=== PATIENT | male | born 1970 | race Caucasian/White ===

== ENCOUNTER 2024-11-29 16:10 | Outpatient (AMB) | payer OTHER, SELFPAY ==
--- OUTSIDE RECORDS SUMMARY | 2024-11-29 16:13 | XMS_ITS | Clinical Summary ---
Author Organization [facility] Address [address] [place] [address] Care Team Providers Care Office Services Specialist Name Role Phone Unavailable Primary Care Provider Unavailabl e Allergies Active Allergy Reactions Criticality Noted Date Comments Hydromorphone Other (See Comments) 11/01/2017 Pressure and tachycardia Morphine Other (See Comments) 11/01/2017 Intense pressure' Medications Medication Sig Dispensed Refills Start Date End Date Status ibuprofen (ADVIL,MOTRIN) 200 MG tablet Take 3 tablets (600 mg total) by mouth every 6 (six) hours as needed for pain. 30 tablet 0 04/04/2016 Active clonazePAM (KLONOPIN) 1 MG tablet Take 1 mg by mouth 2 (two) times a day. 3 08/24/2017 Active hydroCHLOROthiazide (MICROZIDE) 12.5 MG capsule Take 1 capsule (12.5 mg total) by mouth daily. 30 capsule 0 11/02/2017 Active acetaminophen-codein e (TYLENOL #3) 300-30 MG per tablet Take 1 tablet by mouth every 4 (four) hours as needed for pain. 12 tablet 0 07/08/2022 Active Active Problems No known active problems Social History Tobacco Use Types Packs/Day Years Used Date Smoking Tobacco: Never Smokeless Tobacco: Never Alcohol Use Standard Drinks/Week Comments Yes 0 (1 standard drink = 0.6 oz pur e alcohol) rarely Sex and Gender Information Value Date Recorded Sex Assigned at Male 07/07/2022 10:38 PM EDT Gender Identity Not on file Sexual Orientation Not on file Job Start Date Occupation Industry Not on file Not on file Not on file Last Filed Vital Signs Vital Sign Reading Time Taken Comments Blood Pressure 156/92 07/08/2022 1:01 AM EDT Pulse 108 07/08/2022 1:01 AM EDT Temperature 36.7 C (98 F) 07/07/2022 11:49 PM EDT Respiratory Rate 20 07/07/2022 11:49 PM EDT Oxygen Saturation 98% 07/07/2022 11:49 PM EDT Inhaled Oxygen Concentration - - Weight 92.1 kg (203 lb) 11/01/2017 11:00 PM EDT Height 177.8 cm (5' 10 ) 11/01/2017 11:00 PM EDT Body Mass Index 29.13 11/01/2017 11:00 PM EDT Plan of Treatment Health Maintenance Due Date Last Done Comments Hepatitis B Vaccines (1 of 3 - 3-dose series) 1968 Hepatitis C Screening 1968 COVID-19 Vaccine (#1) 05/10/1969 Depression Screening 1980 Preventative Health Evaluation 1986 DTap / Tdap / Td (1 - Tdap) 05/08/2008 05/07/2008 Colon Cancer Screening (Colonoscopy) 2013 Shingrix-Zoster Vaccine (1 of 2) 2018 Influenza Vaccine (#1) 2024 Pneumococcal Vaccine Aged Out No long er eligible based on patient's age to complete this topic RSV Ped < 20 months Aged Out No longe r eligible based on patient's age to complete this topic Insurance Payer Benefit Plan / Group Subscriber ID Effective Dates Phone Address [facility] [id number] 2010-Present [address] [facility] [address] [place] [address] HMO
--- OUTSIDE RECORDS SUMMARY | 2024-11-29 16:13 | XMS_ITS | Clinical Summary ---
Author Organization [facility] Address [address] [place] [address] Care Team Providers Care Cigar Sorter Name Role Phone Physician, No Pcp Primary Care Provider Unavaila ble Surgical History Surgery Date Site/Laterality Comments HERNIA REPAIR PROCEDURE:HERNIA REPAIR Medical History Medical History Date Comments Gout DX:Gout Hypertension DX:Hypertension Social History Tobacco Use Types Packs/Day Years Used Date Smoking Tobacco: Never Smokeless Tobacco: Never Alcohol Use Standard Drinks/Week Comments Yes 0 (1 standard drink = 0.6 oz pur e alcohol) Sex and Gender Information Value Date Recorded Sex Assigned at Not on file Legal Sex Male 2:19 PM EST Gender Identity Not on file Sexual Orientation Not on file Obstetrics History Plan of Treatment Health Maintenance Due Date Last Done Comments Hepatitis B Vaccines (1 of 3 - 19+ 3-dose series) 11/08/1987 DTaP,Tdap,and Td Vaccines (2 - Td or Tdap) 05/07/2018 05/07/2008 Pneumococcal Vaccine: 50+ Years (1 of 1 - PCV) 2018 Zoster Vaccines (1 of 2) 2018 Cholesterol Screening (Lipid Panel) 03/18/2022 Colorectal Cancer Screening: Colonoscopy 03/18/2022 HIV Screening 03/18/2022 Hepatitis C Screening 03/18/2022 Social Influencers of Health Screening 03/18/2022 Hypertension/CHF/CAD Annual BMP Blood Test 07/08/2023 07/07/2022, 11/01/2017, 11/01/2017 COVID-19 Vaccine (1 - 2023-2 5 season) 2023 Depression Screening 04/19/2024 Influenza Vaccine (#1) 2024 HIB Vaccines Aged Out No longer eligi ble based on patient's age to complete this topic HPV Vaccines Aged Out No longer eligi ble based on patient's age to complete this topic Hepatitis A Vaccines Aged Out No long er eligible based on patient's age to complete this topic IPV Vaccines Aged Out No longer eligi ble based on patient's age to complete this topic MMR Vaccines Aged Out No longer eligi ble based on patient's age to complete this topic Meningococcal ACWY Vaccine Aged Out N o longer eligible based on patient's age to complete this topic Meningococcal B Vaccine Aged Out No l onger eligible based on patient's age to complete this topic RSV Immunization Patients Under 20 months Aged Out No longer eligible b ased on patient's age to complete this topic Varicella Vaccines Aged Out No longer eligible based on patient's age to complete this topic Care Teams Cigar Sorter Relationship Specialty Start Date End Date Physician, No Pcp PCP - General 03/23/22
--- NOTE | 2024-11-29 16:18 | A.OFFVIS_ITS ---
Intake Visit Reasons: 6 Months Allergies Pain Medications Allergy (Unknown, Uncoded 11/24/24 08:24) Unknown Medication List - Last Reconciled 11/29/24 by Ai Ramos MD allopurinol 100 mg PO DAILY clonazepam 1 mg PO BID colchicine 0.6 mg PO BID losartan-hydrochlorothiazide 50-12.5 mg 1 tab PO DAILY metoprolol succinate ER 25 mg PO DAILY HPI Comments Details: 2 weeks ago had an SVT event for 30 minutes. Went to Er but he came out of it spontaneously. Also had it in 2021. Overall his dizziness is under control and is stable.. Sleeps ok mostly. Rare brief, dizzy spells over last 6 months. Anxiety is very manageable with clonazepam. Working from home. He had swimmer's ear and was prescribed an ear drop that did not seem to be helping. He was asking for another antibiotic ear drop to be prescribed. No palpitation or SVT with Metoprolol. Occasionally gets stuck for a word for a few seconds. History of pressure in his head and more severe pain in the right occipital areas going into both retro-orbital areas of the head as well as dizziness and presyncope since 2003 with a negative workup including MRI and a tilt table test. He has significant anxiety. ON LICENSE OF [facility] Medical History (Updated 11/29/24 @ 16:20 by Ai Ramos MD) Gout Hypertension Tinnitus Anxiety disorder Headache Dizziness Review of Systems Const Details: leep:? Difficulty getting to sleep?admits.? Difficulty maintaining sleep?denies? .? Urge to move legs?denies.? Teeth grinding?denies.? Shouting or Kicking during sleep?denies.? Abnormal behavior during sleep?denies.? Excessive sleep?denies.? Snoring?denies.? Daytime sleepiness?denies.? ?? General/Constitutional:? Change in appetite?denies.? Chills?denies.? Fatigue?admits.? Fever?denies .? Weight gain?denies.? Weight loss?denies.? ?? Respiratory:? Shortness of breath?denies.? Chest pain?denies.? Cough?denies.? ?? Cardiovascular:? Chest pain at rest?admits.? Chest pain with exertion?denies.? Claudication?denies.? Dizziness?denies.? Fluid accumulation in the legs?denies.? Irregular heartbeat?denies.? Palpitations?admits.? ?? Gastrointestinal:? Abdominal pain?denies.? Constipation?denies.? Diarrhea?denies.? Difficulty swallowing?denies.? Heartburn?denies.? Nausea?denies.? Rectal bleeding?denies.? ?? Genitourinary:? Frequent urination?denies.? Urgency?denies.? Incontinence?denies.? Erectile Dysfunction?denies.? ?? Musculoskeletal:? Neck pain?admits.? Back pain?admits.? Muscle aches?admits.? Painful joints?denies.? Sciatica?denies.? Weakness?denies.? ?? Neurologic:? Difficulty swallowing?denies.? Balance difficulty?denies.? Coordination? normal.? Difficulty speaking?denies.? Dizziness?admits.? Fainting?denies.? Gait abnormality?denies.? Headache?admits.? Loss of strength?denies.? Loss of use of extremity?denies.? Low back pain?denies.? Memory loss?denies.? Seizures?denies.? Tics?denies.? Tingling/Numbness?denies.? Transient loss of vision?denies.? Tremor?denies.? ?? Psychiatric:? Anxiety?admits.? Auditory/visual hallucinations?denies.? Delusions?denies .? Depressed mood?denies.? Stressors?admits.? Substance abuse?denies.? Suicidal thoughts?denies.? ?? Physical Exam Neuro Other: Neurological: ? Abnormal neurological findings:??none.? Mental Status:?alert and oriented X 3,?Normal attention, orientation, memory and affect.? Cranial Nerves:?Pupils are equal, round and reactive to light. Fundoscopy shows normal disc bilaterally. External occular muscles are intact. Visual villanueva are full, no ptosis. Face is symmetrical, no facial weakness or droop. Facial sensations are normal. Tongue protrudes in midline. Palate elevates symmetrically. Shoulder shrugging is normal..? Motor Examination:?Normal muscle tone, bulk and strength,?No atrophy or fasciculations,?No drift of the extended upper extremities,?Deep tendon reflexes are 2+?,?Plantars are flexor?.? Straight Leg Raising:?90 degrees.? Sensory Exam:?Normal light touch, temperature, pinprick, vibration and joint-position sensations?,?Rhomberg sign is absent.? Coordination:?no ataxia,?no titubation,?[id number], [id number] test and rapid alternating movements were normal.? Gait Exam:?Within normal limits.? Cerebellar Signs:?Ersito-xw-xyur and [id number]-fj-xemh is normal,?no dysdiadochokinesia?.? Extrapyramidal System:?No tremor, rigidity with normal facial expressions,?No bradykinesia, no bradyphrenia. Normal arm swing and posture. No propulsion or retropulsion.? Speech:?Normal,?no dysphasia or dysarthria..? Mini Mental Status Exam: ? Level of Consciousness:?Alert.? Orientation:?Knows correct year, month, date, day and season,?Knows correct city, county and state. Knows correct location and floor.? Registration:?Able to register 3 objects.? Attention:?Serial 7's performed accurately.? Recall:?Able to recall 3 out of 3 objects.? Language:?Normal spontaneous speech, fluency, repetition,naming, comprehension, reading and writing.? Total Score:?30/30.? General Examination: ? GENERAL APPEARANCE:??normal,?in no acute distress.? HEART:??S1, S2 normal,?no murmurs.? LUNGS:??clear anteriorly and posteriorly.? MUSCULOSKELETAL:??normal.? EXTREMITIES:??no edema.? PSYCH:??alert, oriented,?cognitive function intact,?cooperative with exam.? Assessment & Plan Assessment & Plan (1) Anxiety disorder: Code(s): F41.9 - Anxiety disorder, unspecified Category: Medical (2) Dizziness: Code(s): R42 - Dizziness and giddiness Category: Medical Plan continue current meds Coding Level of Care Code Est Pt Level 4 (25148) Diagnoses Anxiety disorder F41.9 Dizziness R42
== END 2024-11-29 16:28 | disposition home or self-care (01) ==
LOC: HO.HSM 16:11
PROVIDERS: PCP Family Medicine; Visit Provider Psychiatry & Neurology Neurology
DX: F41.9 Anxiety disorder, unspecified (principal); R42 Dizziness and giddiness
CPT/HCPCS: 99214